=== PATIENT | female | born 1985 | race African-American/Black ===

== ENCOUNTER 2018-08-16 19:30 | Emergency (ER) | payer OTHER, SELFPAY ==
[2018-08-16] MEDS ORDERED: Acetaminophen 500 MG TAB ONE (20:11)
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
== END 2018-08-16 20:35 | disposition home or self-care (01) ==
LOC: ERS 19:30
DX: S80.11XA Contusion of right lower leg, initial encounter (principal); I10 Essential (primary) hypertension; F17.210 Nicotine dependence, cigarettes, uncomplicated; Z79.899 Other long term (current) drug therapy; V03.99XA Pedestrian with other conveyance injured in collision with car, pick-up truck or van, unspecified whether traffic or nontraffic accident, initial encounter